=== PATIENT | female | born 1935 | race Caucasian/White ===

== ENCOUNTER → 2017-05-03 | Outpatient (CLI) | payer MEDICARE, BC ==
[~2017-05-03] MED LIST: ACID REDUCER20 MG PO; ADULT LOW DOSE81 MG PO; ALLOPURINOL 30300 M2 PO; AMARYL2 MG PO; AZITHROMYCIN 2250 MG PO; BENICAR20 MG PO; CARDIZEM CD180 MG PO; CARDIZEM CD240 MG PO; CELEBREX 200 M200 M1; CELEBREX 200 M200 M1 PO; CELEBREX 200 M200 MG PO; CELEBREX PO; COLACE100 MG PO; COLCHICINE0.6 MG PO; DIAZEPAM2 MG PO; DILTIAZEM HCL90 MG PO; DIOVAN HCT 1601 EAC1; DIOVAN HCT 3201 EACH PO; DIOVAN320 MG PO; FENTANYL PA25 MCG/HR TP; GLUCOPHAGE1000 MG PO; HUMALOG MI100 UNIT/2 SQ; HUMALOG100 UNIT/1 SUBQ; HYDROCODON-ACE1 EAC7 PO; HYDROCODONE-AP1 EAC6 PO; LANTUS SUBQ; LIDODERM TP; NEURONTIN 300M300 M2 PO; NITROFURANTOIN50 M4; NORCO 5-325 TA1 EACH PO; NORVASC5 MG PO; PANTOPRAZOLE SO40 M1 PO; PLAVIX 75 MG TA75 MG PO; PREVACID15 MG PO; PROTONIX40 M1 PO; SYNTHROID50 MCG PO; TRAMADOL 50 MG50 MG PO; VALSARTAN-HCTZ1 EAC4; VICODIN; ZOFRAN ODT4 MG PO; ZOFRAN4 MG PO
== END ==
LOC: M.RAD 10:34
DX: M47.896 Other spondylosis, lumbar region (principal); M25.562 Pain in left knee; M25.552 Pain in left hip; R10.2 Pelvic and perineal pain; Z96.652 Presence of left artificial knee joint

== ENCOUNTER → 2017-07-13 | Outpatient (CLI) | payer MEDICARE, BC | LOC: M.ULTRA 13:00 | DX: N28.1 Cyst of kidney, acquired (principal); I10 Essential (primary) hypertension; I70.1 Atherosclerosis of renal artery ==

== ENCOUNTER 2017-07-16 12:41 | Inpatient (IN) | payer MEDICARE, BC ==
[~2017-07-16] VITALS: Ht 152.4 cm; Wt 81.2 kg
[~2017-07-16 12:41] MED LIST changes: -BENICAR20 MG PO; -CARDIZEM CD240 MG PO; -COLCHICINE0.6 MG PO; -DIOVAN320 MG PO; -HYDROCODON-ACE1 EAC7 PO; -NORVASC5 MG PO; -ZOFRAN4 MG PO
[2017-07-16 12:57] VITALS: BP 219/78
[2017-07-16] MEDS ORDERED: CARDIZEM CD240 MG PO (13:04)
[2017-07-16] MEDS ORDERED: DIOVAN320 MG PO (13:05)
[2017-07-16] MEDS ORDERED: HUMALOG100 UNIT/1 SUBQ (13:06)
[2017-07-16 13:27] LABS: URINE BILIRUBIN NEGATIVE (Negative); URINE BLOOD NEGATIVE (Negative); URINE CLARITY CLEAR; URINE COLOR YELLOW; URINE GLUCOSE-RANDOM 1+ (Negative); URINE KETONES NEGATIVE (Negative); URINE LEUKOCYTES-REFLEX NEGATIVE (Negative); URINE NITRITE-REFLEX NEGATIVE (Negative); URINE PROTEIN 3+ (Negative); URINE SPECIFIC GRAVITY 1.025 (1.005-1.030)
[2017-07-16 13:35] LABS: CASTS None Seen /LPF (None Seen); SQUAMOUS >10 Many /LPF (0-3)
[2017-07-16 13:36] LABS: BACTERIA-REFLEX None Seen /HPF (None Seen); CRYSTALS None Seen /LPF (None Seen); URINE RBC 0-2 Rare /HPF (0-2); URINE WBC-REFLEX 0-5 Rare /HPF (0-5)
[2017-07-16 13:36] LABS: ABSOLUTE BASOPHILS 0.1 thou/uL (0.0-0.2); ABSOLUTE LYMPHOCYTES 2.9 thou/uL (0.8-5.3); ABSOLUTE MONOCYTES 0.9 thou/uL (0.0-1.2); ABSOLUTE NEUTROPHILS 8.1 thou/uL (1.6-8.1); BASOPHILS 1.2 %; EOSINOPHILS 0.1 %; HEMATOCRIT 40.4 % (37.0-47.0); HEMOGLOBIN 13.4 gm/dL (12.0-15.0); LYMPHOCYTES 24.2 %; MCHC 33.2 g/dL (28.0-37.0); MCV 99.1 fL (80.0-100.0); MONOCYTES 7.4 %; MPV 8.1 fl. (7.2-11.1); NUCLEATED RBCS 0 /100WBC; PLATELET COUNT* 316 thou/uL (150-400); POLYS 67.1 %; RBC 4.07 mil/uL (4.20-5.00); RDW-CV 13.7 % (10.5-14.5)
[2017-07-16 13:42] LABS: ANION GAP 10 mmol/L (7-16); BUN 41 mg/dL (7-18); CALCIUM 8.7 mg/dL (8.5-10.1); CHLORIDE 102 mmol/L (98-107); CO2 25 mmol/L (21-32); CREATININE 1.8 mg/dL (0.6-1.3); GLUCOSE 231 mg/dL (70-99); POTASSIUM 4.4 mmol/L (3.5-5.1); SODIUM 137 mmol/L (136-145)
[2017-07-16 13:53] LABS: ALBUMIN 2.9 g/dL (3.4-5.0); ALKALINE PHOSPHATASE 125 U/L (46-116); NT-PRO BRAIN NAT PEPTIDE 163 pg/mL (<300); SGOT 33 U/L (15-37); SGPT 51 U/L (30-65); TOTAL BILIRUBIN 0.3 mg/dL (<0.1-1.0); TOTAL PROTEIN 7.7 g/dL (6.4-8.2); TROPONIN-I LEVEL <0.06 ng/mL (<0.06)
[2017-07-16 17:15] VITALS: BP 150/62; BP 195/59
[2017-07-16 20:00] VITALS: BP 184/52
[2017-07-16 21:09] LABS: INFLUENZA A ANTIGEN None Detected (None Detect); INFLUENZA B ANTIGEN None Detected (None Detect)
[2017-07-17 00:07] VITALS: BP 118/43
[2017-07-17 03:52] VITALS: BP 166/57
[2017-07-17 05:13] LABS: ABSOLUTE LYMPHOCYTES 3.3 thou/uL (0.8-5.3); ABSOLUTE MONOCYTES 0.9 thou/uL (0.0-1.2); ABSOLUTE NEUTROPHILS 6.5 thou/uL (1.6-8.1); BASOPHILS 0.3 %; EOSINOPHILS 0.3 %; HEMOGLOBIN 12.2 gm/dL (12.0-15.0); LYMPHOCYTES 30.4 %; MCH 32.7 pg (26.0-34.0); MCHC 32.9 g/dL (28.0-37.0); MCV 99.6 fL (80.0-100.0); MONOCYTES 8.7 %; MPV 8.2 fl. (7.2-11.1); NUCLEATED RBCS 0 /100WBC; PLATELET COUNT* 274 thou/uL (150-400); POLYS 60.3 %; RBC 3.72 mil/uL (4.20-5.00); RDW-CV 13.8 % (10.5-14.5); WBC 10.7 thou/uL (4.0-11.0)
[2017-07-17 05:32] LABS: ALBUMIN 2.5 g/dL (3.4-5.0); CALCIUM 8.6 mg/dL (8.5-10.1); CREATININE 1.4 mg/dL (0.6-1.3); MAGNESIUM 1.8 mg/dL (1.8-2.4); POTASSIUM 4.4 mmol/L (3.5-5.1); TOTAL BILIRUBIN 0.2 mg/dL (<0.1-1.0); TOTAL PROTEIN 6.2 g/dL (6.4-8.2)
[2017-07-17 08:00] VITALS: BP 203/66
[2017-07-17 11:42] VITALS: BP 201/46
--- NOTE | 2017-07-17 15:17 | EKG ---
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
[2017-07-17 17:00] VITALS: BP 148/46
[2017-07-17 20:00] VITALS: BP 191/64
[2017-07-18] VITALS: BP 136/57
[2017-07-18 04:00] VITALS: BP 181/67
[2017-07-18 05:13] LABS: ABSOLUTE BASOPHILS 0.1 thou/uL (0.0-0.2); ABSOLUTE LYMPHOCYTES 2.9 thou/uL (0.8-5.3); ABSOLUTE MONOCYTES 0.9 thou/uL (0.0-1.2); ABSOLUTE NEUTROPHILS 6.6 thou/uL (1.6-8.1); BASOPHILS 0.5 %; EOSINOPHILS 0.3 %; HEMATOCRIT 37.7 % (37.0-47.0); HEMOGLOBIN 12.4 gm/dL (12.0-15.0); LYMPHOCYTES 27.9 %; MCH 32.6 pg (26.0-34.0); MCV 98.9 fL (80.0-100.0); MONOCYTES 8.9 %; MPV 8.4 fl. (7.2-11.1); NUCLEATED RBCS 0 /100WBC; PLATELET COUNT* 257 thou/uL (150-400); POLYS 62.4 %; RBC 3.81 mil/uL (4.20-5.00); RDW-CV 13.9 % (10.5-14.5); WBC 10.5 thou/uL (4.0-11.0)
[2017-07-18 05:36] LABS: ALBUMIN 2.5 g/dL (3.4-5.0); CREATININE 1.2 mg/dL (0.6-1.3); POTASSIUM 4.2 mmol/L (3.5-5.1); TOTAL BILIRUBIN 0.3 mg/dL (<0.1-1.0); TOTAL PROTEIN 6.9 g/dL (6.4-8.2)
[2017-07-18 07:45] VITALS: BP 152/63
[2017-07-18 11:45] VITALS: BP 172/60
[2017-07-18 15:37] VITALS: BP 130/36
[2017-07-18 20:00] VITALS: BP 160/72
[2017-07-19] VITALS: BP 138/62
[2017-07-19 04:00] VITALS: BP 170/77
[2017-07-19 04:54] LABS: HEMATOCRIT 42.2 % (37.0-47.0); HEMOGLOBIN 13.6 gm/dL (12.0-15.0); MCH 33.5 pg (26.0-34.0); MCHC 32.3 g/dL (28.0-37.0); MCV 103.8 fL (80.0-100.0); MPV 8.7 fl. (7.2-11.1); RBC 4.06 mil/uL (4.20-5.00); RDW-CV 14.7 % (10.5-14.5); WBC 8.9 thou/uL (4.0-11.0)
[2017-07-19 05:38] LABS: ALBUMIN 2.8 g/dL (3.4-5.0); CALCIUM 9.5 mg/dL (8.5-10.1); CREATININE 1.1 mg/dL (0.6-1.3); POTASSIUM 4.7 mmol/L (3.5-5.1); TOTAL BILIRUBIN 0.3 mg/dL (<0.1-1.0); TOTAL PROTEIN 6.8 g/dL (6.4-8.2)
[2017-07-19 08:00] VITALS: BP 154/69
[2017-07-19 11:04] VITALS: BP 120/46
[2017-07-19] MEDS ORDERED: NORVASC5 MG PO (13:51)
[2017-07-19 13:53] VITALS: BP 120/46
== END 2017-07-19 14:30 | disposition home or self-care (01) | DRG 682 ==
LOC: M.ERS 12:41 → M.TBA-ER 15:03 → M.2W 15:03
PROVIDERS: Emergency Medicine Emergency Medical Services; ADMIT Internal Medicine
DX: N17.0 Acute kidney failure with tubular necrosis (principal); R65.11 Systemic inflammatory response syndrome (SIRS) of non-infectious origin with acute organ dysfunction; I16.1 Hypertensive emergency; I50.32 Chronic diastolic (congestive) heart failure; E44.0 Moderate protein-calorie malnutrition; I13.0 Hypertensive heart and chronic kidney disease with heart failure and stage 1 through stage 4 chronic kidney disease, or unspecified chronic kidney disease; N18.3 Chronic kidney disease, stage 3 (moderate); E11.51 Type 2 diabetes mellitus with diabetic peripheral angiopathy without gangrene; E66.9 Obesity, unspecified; Z96.651 Presence of right artificial knee joint; K21.9 Gastro-esophageal reflux disease without esophagitis; E03.9 Hypothyroidism, unspecified; M19.90 Unspecified osteoarthritis, unspecified site; E78.5 Hyperlipidemia, unspecified; D72.829 Elevated white blood cell count, unspecified; Z68.35 Body mass index [BMI] 35.0-35.9, adult; Z88.1 Allergy status to other antibiotic agents; Z88.8 Allergy status to other drugs, medicaments and biological substances; Z86.711 Personal history of pulmonary embolism; Z79.4 Long term (current) use of insulin; Z79.899 Other long term (current) drug therapy; Z90.710 Acquired absence of both cervix and uterus; Z90.89 Acquired absence of other organs; Z90.49 Acquired absence of other specified parts of digestive tract; Z86.718 Personal history of other venous thrombosis and embolism; E11.22 Type 2 diabetes mellitus with diabetic chronic kidney disease; Z82.49 Family history of ischemic heart disease and other diseases of the circulatory system; Z83.3 Family history of diabetes mellitus; Z84.1 Family history of disorders of kidney and ureter

== ENCOUNTER → 2017-11-01 | Outpatient (CLI) | payer MEDICARE, BC ==
[~2017-11-01] MED LIST changes: +BENICAR20 MG PO; +CARDIZEM CD240 MG PO; +COLCHICINE0.6 MG PO; +DIOVAN320 MG PO; +HYDROCODON-ACE1 EAC7 PO; +NORVASC5 MG PO; +ZOFRAN4 MG PO
[2017-11-01 10:46] LABS: CREATININE 1.5 mg/dL (0.6-1.3)
== END ==
LOC: M.LAB 10:19 → M.CT 11:30
PROVIDERS: Nurse Practitioner
DX: R91.8 Other nonspecific abnormal finding of lung field (principal); I10 Essential (primary) hypertension; Z95.820 Peripheral vascular angioplasty status with implants and grafts

== ENCOUNTER 2018-02-10 09:27 | Emergency (ER) | payer MEDICARE, BC ==
[~2018-02-10] VITALS: Ht 152.4 cm; Wt 79.4 kg
[~2018-02-10 09:27] MED LIST changes: -BENICAR20 MG PO; -COLCHICINE0.6 MG PO; -HYDROCODON-ACE1 EAC7 PO; -ZOFRAN4 MG PO
[2018-02-10] MEDS ORDERED: BENICAR20 MG PO (09:43)
[2018-02-10] MEDS ORDERED: HYDROCODON-ACE1 EAC7 PO (15:15)
[2018-02-10] MEDS ORDERED: ZOFRAN4 MG PO (15:15)
[2018-02-10 15:21] VITALS: BP 200/100
== END 2018-02-10 15:34 | disposition home or self-care (01) ==
LOC: M.ERS 09:27
DX: S86.911A Strain of unspecified muscle(s) and tendon(s) at lower leg level, right leg, initial encounter (principal); X58.XXXA Exposure to other specified factors, initial encounter; Y93.89 Activity, other specified; Y92.89 Other specified places as the place of occurrence of the external cause; Y99.8 Other external cause status; I12.9 Hypertensive chronic kidney disease with stage 1 through stage 4 chronic kidney disease, or unspecified chronic kidney disease; E11.22 Type 2 diabetes mellitus with diabetic chronic kidney disease; N18.3 Chronic kidney disease, stage 3 (moderate); K21.9 Gastro-esophageal reflux disease without esophagitis; E03.9 Hypothyroidism, unspecified; E78.5 Hyperlipidemia, unspecified; Z90.49 Acquired absence of other specified parts of digestive tract; Z90.710 Acquired absence of both cervix and uterus; Z86.718 Personal history of other venous thrombosis and embolism; Z88.1 Allergy status to other antibiotic agents; Z88.5 Allergy status to narcotic agent; Z88.6 Allergy status to analgesic agent; Z88.8 Allergy status to other drugs, medicaments and biological substances

== ENCOUNTER 2018-02-11 10:59 | Inpatient (IN) | payer MEDICARE, BC ==
[~2018-02-11] VITALS: Ht 152.4 cm; Wt 81.6 kg
[~2018-02-11 10:59] MED LIST changes: +BENICAR20 MG PO; +HYDROCODON-ACE1 EAC7 PO; +ZOFRAN4 MG PO
[2018-02-11 11:06] VITALS: BP 119/68
[2018-02-11 11:42] LABS: ABSOLUTE BASOPHILS 0.1 thou/uL (0.0-0.2); ABSOLUTE LYMPHOCYTES 2.3 thou/uL (0.8-5.3); ABSOLUTE MONOCYTES 0.9 thou/uL (0.0-1.2); ABSOLUTE NEUTROPHILS 7.2 thou/uL (1.6-8.1); BASOPHILS 0.7 %; EOSINOPHILS 0.3 %; HEMATOCRIT 35.2 % (37.0-47.0); HEMOGLOBIN 11.6 gm/dL (12.0-15.0); LYMPHOCYTES 21.9 %; MCH 31.8 pg (26.0-34.0); MCV 96.5 fL (80.0-100.0); MONOCYTES 8.5 %; MPV 8.3 fl. (7.2-11.1); NUCLEATED RBCS 0 /100WBC; PLATELET COUNT* 322 thou/uL (150-400); POLYS 68.6 %; RBC 3.65 mil/uL (4.20-5.00); RDW-CV 13.9 % (10.5-14.5); WBC 10.5 thou/uL (4.0-11.0)
[2018-02-11 11:50] LABS: CALCIUM 8.9 mg/dL (8.5-10.1); CREATININE 1.5 mg/dL (0.6-1.3); POTASSIUM 3.9 mmol/L (3.5-5.1)
[2018-02-11 11:55] LABS: ALBUMIN 2.7 g/dL (3.4-5.0); TOTAL BILIRUBIN 0.4 mg/dL (<0.1-1.0); TOTAL PROTEIN 8.1 g/dL (6.4-8.2); URIC ACID* 8.9 mg/dL (2.6-7.2)
[2018-02-11 13:20] VITALS: BP 119/68
[2018-02-11 17:02] VITALS: BP 152/86
[2018-02-11 21:00] VITALS: BP 177/62
[2018-02-12] VITALS: BP 187/64
[2018-02-12 04:19] LABS: HEMATOCRIT 32.9 % (37.0-47.0); MCH 32.1 pg (26.0-34.0); MCHC 33.4 g/dL (28.0-37.0); MPV 8.6 fl. (7.2-11.1); RBC 3.43 mil/uL (4.20-5.00); WBC 9.7 thou/uL (4.0-11.0)
[2018-02-12 04:39] LABS: CREATININE 1.4 mg/dL (0.6-1.3); MAGNESIUM 1.6 mg/dL (1.8-2.4); PHOSPHORUS* 3.2 mg/dL (2.5-4.9); POTASSIUM 4.2 mmol/L (3.5-5.1)
[2018-02-12 08:49] VITALS: BP 187/70
[2018-02-12 15:42] VITALS: BP 181/67
[2018-02-12 20:30] VITALS: BP 178/61
[2018-02-13 08:15] VITALS: BP 176/58
[2018-02-13 16:00] VITALS: BP 152/55
[2018-02-13 19:30] VITALS: BP 139/59
[2018-02-14 03:05] VITALS: BP 203/71
[2018-02-14 03:06] VITALS: BP 194/74
[2018-02-14 03:48] VITALS: BP 171/62
[2018-02-14 08:00] VITALS: BP 155/68
[2018-02-14 14:05] VITALS: BP 155/68
[2018-02-14 14:19] VITALS: BP 155/68
[2018-02-14] MEDS ORDERED: COLCHICINE0.6 MG PO (14:25)
== END 2018-02-14 15:33 | disposition home health service (06) | DRG 553 ==
LOC: M.ERS 10:59 → M.TBA-ER 12:15 → M.3W 12:15
PROVIDERS: Emergency Medicine; ADMIT Internal Medicine
DX: M10.061 Idiopathic gout, right knee (principal); E43 Unspecified severe protein-calorie malnutrition; E87.1 Hypo-osmolality and hyponatremia; I12.9 Hypertensive chronic kidney disease with stage 1 through stage 4 chronic kidney disease, or unspecified chronic kidney disease; Z96.651 Presence of right artificial knee joint; K21.9 Gastro-esophageal reflux disease without esophagitis; E03.9 Hypothyroidism, unspecified; M19.90 Unspecified osteoarthritis, unspecified site; E78.5 Hyperlipidemia, unspecified; N18.3 Chronic kidney disease, stage 3 (moderate); E11.51 Type 2 diabetes mellitus with diabetic peripheral angiopathy without gangrene; E11.22 Type 2 diabetes mellitus with diabetic chronic kidney disease; M47.896 Other spondylosis, lumbar region; M51.36 Other intervertebral disc degeneration, lumbar region; M10.071 Idiopathic gout, right ankle and foot; I70.1 Atherosclerosis of renal artery; Z68.35 Body mass index [BMI] 35.0-35.9, adult; Z86.718 Personal history of other venous thrombosis and embolism; Z90.49 Acquired absence of other specified parts of digestive tract; Z90.710 Acquired absence of both cervix and uterus; Z86.711 Personal history of pulmonary embolism; Z95.820 Peripheral vascular angioplasty status with implants and grafts; Z79.4 Long term (current) use of insulin; Z79.899 Other long term (current) drug therapy; Z88.1 Allergy status to other antibiotic agents; Z88.8 Allergy status to other drugs, medicaments and biological substances; Z82.49 Family history of ischemic heart disease and other diseases of the circulatory system; Z83.3 Family history of diabetes mellitus; Z84.1 Family history of disorders of kidney and ureter

== ENCOUNTER 2018-05-16 13:18 | Emergency (ER) | payer MEDICARE, BC ==
[~2018-05-16] VITALS: Ht 152.4 cm; Wt 77.1 kg
[~2018-05-16 13:18] MED LIST changes: +COLCHICINE0.6 MG PO
[2018-05-16] MEDS ORDERED: BENICAR20 MG PO (13:56)
[2018-05-16 16:02] VITALS: BP 170/72
== END 2018-05-16 16:06 | disposition home or self-care (01) ==
LOC: M.ERS 13:18
DX: S93.491A Sprain of other ligament of right ankle, initial encounter (principal); S76.812A Strain of other specified muscles, fascia and tendons at thigh level, left thigh, initial encounter; E03.9 Hypothyroidism, unspecified; E78.5 Hyperlipidemia, unspecified; I12.9 Hypertensive chronic kidney disease with stage 1 through stage 4 chronic kidney disease, or unspecified chronic kidney disease; E11.22 Type 2 diabetes mellitus with diabetic chronic kidney disease; N18.3 Chronic kidney disease, stage 3 (moderate); I73.9 Peripheral vascular disease, unspecified; Z90.710 Acquired absence of both cervix and uterus; Z90.49 Acquired absence of other specified parts of digestive tract; Z96.652 Presence of left artificial knee joint; Z86.711 Personal history of pulmonary embolism; Z76.4 Other boarder to healthcare facility; Z88.1 Allergy status to other antibiotic agents; Z88.6 Allergy status to analgesic agent; Z88.8 Allergy status to other drugs, medicaments and biological substances; W00.0XXA Fall on same level due to ice and snow, initial encounter; Y93.89 Activity, other specified; Y92.89 Other specified places as the place of occurrence of the external cause; Y99.8 Other external cause status

== ENCOUNTER 2018-09-13 02:36 | Inpatient (IN) | payer MEDICARE, BC ==
[2018-09-13] VITALS (7 sets, daily range): BP systolic 132–227; BP diastolic 46–85
[~2018-09-13] VITALS: Ht 152.4 cm; Wt 78.0 kg
[2018-09-13 02:54] LABS: ABSOLUTE BASOPHILS 0.1 thou/uL (0.0-0.2); ABSOLUTE EOSINOPHILS 0.1 thou/uL (0.0-0.7); ABSOLUTE LYMPHOCYTES 2.7 thou/uL (0.8-5.3); ABSOLUTE MONOCYTES 0.7 thou/uL (0.0-1.2); ABSOLUTE NEUTROPHILS 3.8 thou/uL (1.6-8.1); BASOPHILS 0.9 %; EOSINOPHILS 1.6 %; HEMATOCRIT 37.9 % (37.0-47.0); HEMOGLOBIN 12.7 gm/dL (12.0-15.0); LYMPHOCYTES 35.8 %; MCH 31.7 pg (26.0-34.0); MCHC 33.4 g/dL (28.0-37.0); MCV 94.7 fL (80.0-100.0); MONOCYTES 9.9 %; MPV 8.6 fl. (7.2-11.1); NUCLEATED RBCS 0 /100WBC; PLATELET COUNT* 239 thou/uL (150-400); POLYS 51.8 %; WBC 7.4 thou/uL (4.0-11.0)
[2018-09-13 03:09] LABS: ANION GAP 10 mmol/L (7-16); BUN 32 mg/dL (7-18); CALCIUM 9.5 mg/dL (8.5-10.1); CHLORIDE 103 mmol/L (98-107); CO2 25 mmol/L (21-32); CREATININE 1.5 mg/dL (0.6-1.3); GLUCOSE 217 mg/dL (70-99); POTASSIUM 4.5 mmol/L (3.5-5.1); SODIUM 138 mmol/L (136-145)
[2018-09-13 03:14] LABS: ALBUMIN 2.8 g/dL (3.4-5.0); ALKALINE PHOSPHATASE 156 U/L (46-116); SGOT 36 U/L (15-37); SGPT 34 U/L (30-65); TOTAL BILIRUBIN 0.3 mg/dL (<0.1-1.0); TOTAL PROTEIN 7.9 g/dL (6.4-8.2); TROPONIN-I LEVEL <0.06 ng/mL (<0.06)
[2018-09-13 03:28] LABS: URINE BILIRUBIN NEGATIVE (Negative); URINE BLOOD TRACE (Negative); URINE CLARITY CLEAR; URINE COLOR YELLOW; URINE GLUCOSE-RANDOM TRACE (Negative); URINE KETONES NEGATIVE (Negative); URINE LEUKOCYTES-REFLEX NEGATIVE (Negative); URINE NITRITE-REFLEX NEGATIVE (Negative); URINE PROTEIN 3+ (Negative); URINE UROBILINOGEN 0.2 E.U./dl (0.2-1.0)
[2018-09-13 04:20] LABS: BACTERIA-REFLEX 1-9 Few /HPF (None Seen); CASTS None Seen /LPF (None Seen); CRYSTALS None Seen /LPF (None Seen); SQUAMOUS 0-3 Few /LPF (0-3); URINE RBC 0-2 Rare /HPF (0-2); URINE WBC-REFLEX 0-5 Rare /HPF (0-5)
[2018-09-13 04:54] LABS: APTT 28.8 Seconds (25.0-31.3); PROTIME 10.2 Seconds (9.20-11.50)
[2018-09-13 05:27] LABS: TROPONIN-I LEVEL <0.06 ng/mL (<0.06)
[2018-09-13 06:07] LABS: NT-PRO BRAIN NAT PEPTIDE 170 pg/mL (<300)
--- NOTE | 2018-09-13 11:36 | EKG ---
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
--- NOTE | 2018-09-13 12:07 | 2DMMODE ---
[place] [address] 2 D/M-MODE ECHOCARDIOGRAM Name: ROBIN ASH Room: [address] IN [facility]#: [id number] Admission: 09/13/18 Attend Phys: Anjali Beard Discharge: Date of : 39 Date of Service: 09/13/18 1206 Report #: [id number] THIS REPORT FOR: //name// APPROVED REPORT Study performed: 09/13/2018 10:29:55 EXAM: Comprehensive 2D, Doppler, and color-flow Echocardiogram Patient Location: In-Patient Room #: [facility] Status: routine BSA: 1.75 HR: 66 bpm BP: 209/77 mmHg Rhythm: NSR Other Information Study Quality: Good Indications Dyspnea 2D Dimensions IVSd: 8.28 (7-11mm) LVOT Diam: 17.61 (18-24mm) LVDd: 41.35 mm PWd: 8.74 (7-11mm) Ascending Ao: 31.55 (22-36mm) LVDs: 22.96 (25-40mm) Aortic Root: 30.77 mm Volumes Left Atrial Volume (Systole) LA ESV Index: 20.50 mL/m2 Aortic Valve AoV Peak Michael.: 1.69 m/s AO Peak Gr.: 11.46 mmHg LVOT Max P.12 mmHg AO Mean Gr.: 5.91 mmHg LVOT Mean P.96 mmHg LVOT Max V: 1.24 m/s AO V2 VTI: 38.12 cm LVOT Mean V: 0.79 m/s NETTA (VTI): 1.94 cm2 LVOT V1 VTI: 30.42 cm Mitral Valve MV Mean Gr.: 2.65 mmHg E/A Ratio: 0.68 MV Decel. Time: 403.94 ms MV E Max Michael.: 0.80 m/[place] [address] 2 D/M-MODE ECHOCARDIOGRAM Name: ROBIN ASH Room: [address] IN [facility].#: [id number] Admission: 09/13/18 Attend Phys: Anjali Beard Discharge: Date of : 39 Date of Service: 09/13/18 1206 Report #: [id number] PHT: 117.14 ms MVA (PHT): 1.88 cm2 TDI E/Lateral E': 10.00 E/Medial E': 10.00 Medial E' Michael.: 0.08 m/s Lateral E' Michael.: 0.08 m/s Pulmonary Valve PV Peak Michael.: 1.23 m/s PV Peak Gr.: 6.10 mmHg Left Ventricle The left ventricle is normal size. There is normal LV segmental wall motion. There is normal left ventricular wall thickness. Left ventricular systolic function is normal. The left ventricular ejection fraction is within the normal range. LVEF is 65-70%. Grade I - abnormal relaxation pattern. Right Ventricle The right ventricle is normal size. The right ventricular systolic function is normal. Atria The left atrium size is normal. The right atrium size is normal. Aortic Valve Mild aortic valve sclerosis. No aortic regurgitation is present. There is no aortic valvular stenosis. Mitral Valve Moderate mitral annular calcification. Trace mitral regurgitation. No evidence of mitral valve stenosis. Tricuspid Valve The tricuspid valve is normal in structure. Unable to assess PA pressure. Trace tricuspid regurgitation. Pulmonic Valve The pulmonary valve is normal in structure. There is no pulmonic valvular regurgitation. Great Vessels The aortic root is normal in size. IVC is normal in size and collapses >50% [place] [address] 2 D/M-MODE ECHOCARDIOGRAM Name: ROBIN ASH Room: [address] IN [facility]#: [id number] Admission: 09/13/18 Attend Phys: Anjali Beard Discharge: Date of : 39 Date of Service: 09/13/18 1206 Report #: [id number] Pericardium There is no pericardial effusion. <Conclusion> LVEF is 65-70%. There is normal LV segmental wall motion. Grade I - abnormal relaxation pattern. Mild aortic valve sclerosis. There is no aortic valvular stenosis. No aortic regurgitation is present. No evidence of mitral valve stenosis. Trace mitral regurgitation. <ELECTRONICALLY SIGNED> By: Christopher Arce MD, [facility]ACC 09/13/18 1206 1206 120 Christopher Arce MD, [facility]ACC /INF
--- NOTE | 2018-09-13 15:57 | NUR ---
PT SOMEWHAT PROGRESSING TOWARDS GOALS THIS SHIFT. NEW ADMIT TODAY. PT/OT CONSULTED. BLOOD PRESSURE IMPROVED WITH ADDITIONAL MEDS ORDERED BY HIM PHYSICIAN. PT HAD CT CHEST TODAY. REFER TO RESULTS .ANTICIPATE RENAL US TOMORROW. NPO AFTER MIDNIGHT. NO OTHER CONCERNS AT THIS TIME. CLWR. WCTM.
[2018-09-14 01:03] VITALS: BP 116/44
[2018-09-14 04:16] VITALS: BP 122/50
--- NOTE | 2018-09-14 05:19 | NUR ---
ASSUMED PATIENT CARE AT 1900. PATIENT ALERT AND ORIENTED TIMES FOUR. VERY SLEEPY AT TIME OF ASSESSMENT. ABLE TO AMBULATE WITH STB TO THE RESTROOM. NO COMPLAINTS OF PAIN OR DISCOMFORT NOTED. 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
[2018-09-14 08:02] VITALS: BP 140/45
--- NOTE | 2018-09-14 10:40 | NUR ---
CM completed initial assessment to discuss d/c plan and educate on the role of CM. pt standing in mirror fixing hair upon arrival, also pt's was present at time of assessment. pt a&Ox4. pt has hx w/HH and SNF, doesnt recall which companies used. pt lives at home w/spouse & has adequate support. pt has a walker she uses prn. no needs identified at this time. CM will remain available to assist as needed.
[2018-09-14 11:56] VITALS: BP 139/55
[2018-09-14 15:50] VITALS: BP 115/50
--- NOTE | 2018-09-14 15:56 | NUR ---
Dr. Dobbs informed this CM the pt had question about dpoa. cm took dpoa paperwork and informed pt and spouse CM dept had available notary. pt declined to sign paperwork at this time. she asked CM to leave paperwork for her to review.
--- NOTE | 2018-09-14 17:29 | NUR ---
PT CARE ASSUMED AFTER REPORT. ASSESSMENT COMPLETE. SR ON MONITOR. PT CHOOSES WHAT MEDICATION SHE WILL TAKE. PT EDUCATION R/T NEED FOR MEDICATION AND THAT THIS IS WHAT THE DR HAS ORDERED. REFUSED LOSARTAN AND SENNA. ALSO REFUSED AM INSULIN R/T TIME IT WAS OFFERED. DENIES PAIN. PROGRESSING TOWARDS GOALS.
[2018-09-14 20:00] VITALS: BP 118/47
[2018-09-14 23:06] LABS: IgA 653 mg/dL (64-422); IgG 1286 mg/dL (700-1600); IgM 178 mg/dL (26-217)
[2018-09-15] VITALS: BP 167/61
[2018-09-15 04:00] VITALS: BP 150/54
--- NOTE | 2018-09-15 05:38 | NUR ---
ASSUMED PATIENT CARE AT 1900. PATIENT RESTING IN BED AT THIS TIME. REMAINS LETHARGIC AND FLAT. ABLE TO AMBULATE WITH STB TO THE RESTROOM. 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
[2018-09-15 08:15] VITALS: BP 147/50
[2018-09-15 12:42] VITALS: BP 123/61
--- NOTE | 2018-09-15 13:18 | NUR ---
NEW ORDERS RECEIVED FOR P.T. EVAL AND TREAT. PLEASE SEE P.T. EVAL WHICH WAS COMPLETED ON 09/14/18 P.M.
[2018-09-15 17:44] VITALS: BP 164/55
--- NOTE | 2018-09-15 18:10 | NUR ---
PT VSS THIS SHIFT. PT TO HAVE LUNG BX OUTPATIENT. PT TOLERATING BEING UP AD SARA/SBA AT THIS TIME. PT PROVIDED INSULIN WHEN NEEDED. PT PAIN WELL MANAGED AT THIS TIME. HOURLY ROUNDING MAINTAINED THIS SHIFT. WILL CONTINUE TO MONITOR AND ASSESS.
[2018-09-15 20:00] VITALS: BP 119/51
[2018-09-16] VITALS: BP 114/61
[2018-09-16 04:00] VITALS: BP 160/54
[2018-09-16 04:41] LABS: HEMATOCRIT 33.7 % (37.0-47.0); HEMOGLOBIN 11.2 gm/dL (12.0-15.0); MCH 31.7 pg (26.0-34.0); MCHC 33.1 g/dL (28.0-37.0); MCV 95.6 fL (80.0-100.0); RBC 3.52 mil/uL (4.20-5.00); WBC 5.9 thou/uL (4.0-11.0)
[2018-09-16 04:51] LABS: CALCIUM 8.8 mg/dL (8.5-10.1); CREATININE 2.1 mg/dL (0.6-1.3); MAGNESIUM 2.2 mg/dL (1.8-2.4); POTASSIUM 4.9 mmol/L (3.5-5.1)
--- NOTE | 2018-09-16 05:36 | NUR ---
ASSUMED PT CARE AT APPROX 1930. PT IS AWAKE AND ORIENTED X4. VSS ON 2L/NC. TERMITE CONTROL TECHNICIAN IN PLACE TRACING SR WITH 1D AVB. PT REFUSED TO GET SLIDING SCALE DOSE LAST NIGHT. EDUCATION GIVEN. PT WAS ABLE TO SLEEP MOST OF THE NIGHT. CALLL LIGHT WITHIN REACH. HOURLY ROUNDING DONE FOR PT SAFETY. FALL PRECAUTIONS IN PLACE.
[2018-09-16 07:30] VITALS: BP 140/54
--- NOTE | 2018-09-16 18:58 | NUR ---
PT CHANGED TO MED/SURG STATUS THIS SHIFT. PT PLACED ON IV FLUIDS FOR LOW SODIUM LABS. PT TO STAY FOR LUNG BX TOMORROW AND WILL BE NPO AT MIDNIGHT. PT HAS NO C/O PAIN THIS SHIFT AND IS TOLERATING BEING UP AD SARA AND IS HAVING NO GI/, N/V ISSUES THIS SHIFT. WILL CONTINUE TO MONITOR AND ASSESS.
[2018-09-16 20:15] VITALS: BP 147/61
[2018-09-17 04:34] LABS: HEMATOCRIT 30.5 % (37.0-47.0); HEMOGLOBIN 10.2 gm/dL (12.0-15.0); MCH 31.7 pg (26.0-34.0); MCHC 33.3 g/dL (28.0-37.0); MCV 95.3 fL (80.0-100.0); MPV 9.3 fl. (7.2-11.1); RBC 3.2 mil/uL (4.20-5.00); RDW-CV 14.2 % (10.5-14.5); WBC 8.7 thou/uL (4.0-11.0)
[2018-09-17 04:43] LABS: CALCIUM 8.4 mg/dL (8.5-10.1); CREATININE 2.2 mg/dL (0.6-1.3); MAGNESIUM 2.2 mg/dL (1.8-2.4); POTASSIUM 5.1 mmol/L (3.5-5.1)
--- NOTE | 2018-09-17 06:33 | NUR ---
Transferred to floor at 2008. She is alert and oriented x 4. She had a new IV 22 gauge in her L forearm before she arrived to the floor. She is up independently to the bathroom. Her blood sugar was 270 at bedtime she did take the lantus but refused the sliding scale humalog. She has been awake all night but refused any intervention. She had nothing by mouth since midnight.
[2018-09-17 06:52] VITALS: BP 147/61
[2018-09-17 07:30] VITALS: BP 157/68
--- NOTE | 2018-09-17 13:05 | CON ---
[address] [address] CONSULTATION Name: ROBIN ASH Room: [address] IN M.R.#: [id number] Admission: 09/13/18 Attend Phys: Maisha Wen Discharge: Date of : 39 Report #: [id number] THIS REPORT FOR: //name// CC: Angela Beard REASON FOR CONSULTATION: Pulmonary nodules. HISTORY OF PRESENT ILLNESS: This is an 82-year-old female patient who was admitted to the hospital on the above-mentioned date with a chief complaint of shortness of breath that started the night of the hospitalization. Apparently, she was asleep when she developed shortness of breath. She was found to have high blood pressure. She had no chest pain or headache. She reported she had some wheezes, although she had no cough. She has no sick contacts, no fever, no chills and no sputum production. She denied any lower extremity edema. Also, she reported some belching and some feeling that she is distended. She has positive PNDs per her description and unable to lay flat. Her workup included BNP, which actually noted to be not elevated. However, her echocardiogram demonstrated preserved EF with grade 1 diastolic dysfunction. She was admitted and treated for her hypertension with gentle diuresis and she reports some improvement today. She never had asthma before. She has never been on inhaler or oxygen. She reports that she is feeling better today. Her workup includes CT scan that will be discussed below, that demonstrated bilateral upper lobe nodules. REVIEW OF SYSTEMS: All systems reviewed with the patient negative other than as mentioned above. PAST MEDICAL HISTORY: History of hypertension, diabetes mellitus, hypothyroidism, bilateral renal artery stents, history of peripheral vascular disease, chronic kidney disease, history of DVT, history of rotator cuff repair, history of hysterectomy, cholecystectomy, appendectomy, uterine and bladder suspension and right total knee replacement. She has IVC filter placed. She has history of head and left knee surgery. PAST SURGICAL HISTORY: As above. SOCIAL HISTORY: Does not smoke, does not drink alcohol and does not abuse drugs. FAMILY HISTORY: Reviewed with the patient, noncontributory. HOME MEDICATIONS: Reviewed per the documentation within the [facility]. ALLERGIES: MULTIPLE INCLUDING LYRICA, CHICO INHIBITOR, COREG, TOPROL, DILAUDID, CIPRO, LIPITOR, AUGMENTIN, SIMVASTATIN, [place]IN[place] [address] CONSULTATION Name: ASHROBIN Abbey Room: [address]#: [id number] Admission: 09/13/18 Attend Phys: Maisha Wen Discharge: Date of : 39 Report #: [id number] PHYSICAL EXAMINATION: VITAL SIGNS: She was on room air during my visit with a blood pressure 150/54, pulse rate of 68 and temperature 36.6. She is on room air. It was noted that her blood pressure upon presentation was 223/85. GENERAL: Lying in bed, overall comfortable. HEENT: Head normocephalic, atraumatic. Pupils are reactive to light. Oral cavity, moist mucous membrane. External ear looks normal and healthy. Nasal cavity patent passages. NECK: Full range of movement. Nontender. No masses felt. CHEST: Diminished air movement bilaterally. No crackles, no wheezes. No tenderness on chest palpation. HEART: S1, S2. ABDOMEN: Benign, soft, lax and nontender. EXTREMITIES: Lower extremities: No edema, no calf tenderness. SKIN: Normal for age and race, no rash. LYMPHATICS: No palpable lymph node. LABORATORY DATA: Her V/Q scan did not indicate thromboembolic disease. Her chest x-ray, no acute pathology. However, the CT scan demonstrated bilateral upper lobe nodules, the one on the right side is 2.5 x 1.8 x 2.4 and the left upper lobe 1.7 x 1.37 and some ground-glass infiltrates. Her white blood count is 7.4, hemoglobin 12.7 and platelets 239. INR of 1. Creatinine of 1.5 with sodium 138, potassium 4.8 with a BUN of 32. IMPRESSION: 1. Dyspnea. 2. Diastolic cardiac dysfunction. 3. Hypertensive urgency. 4. Chronic kidney disease. 5. Diabetes mellitus. 6. Bronchospasm. 7. Pulmonary nodules as mentioned above. PLAN: The patient's respiratory failure, multifactorial. She has some wheezes, which could be due to bronchospasm, although she did not relate a history to suggest respiratory virus illness. I agree with the nebulization treatment. We will give her 2 doses of steroids. Continue gentle diuresis, monitor her kidney function. I did review the CT scan, these nodules are very high up in the bilateral upper lobes. It will be difficult to approach with a bronchoscopy. I agree with the plan for CT-guided biopsy. She is currently off her Plavix. Discussed with the patient. [address] [place] [address] CONSULTATION Name: ROBIN ASH Room: [facility] IN .R.#: [id number] Admission: 09/13/18 Attend Phys: Maisha Wen Discharge: Date of : 39 Report #: [id number] Thank you for the consult. The patient is aware these nodules may indicate malignancy. <ELECTRONICALLY SIGNED> By: Curtis Claros MD 09/17/18 1305 0811 [id number] Claros MD /nt
[2018-09-17 14:08] LABS: LAMBDA FREE LIGHT CHAINS 41.8 mg/L (5.7-26.3)
--- NOTE | 2018-09-17 16:54 | NUR ---
PT REMAINED ALERT AND ORIENTED. PT RESTING IN ROOM. PT ADVANCED TO CARB CONTROL DIET. NO LUNG BIOPSY COMPLETED TODAY, WILL FOLLOW UP OUTPATIENT. FALL RISK PRECAUTIONS IN PLACE. HOURLY ROUNDING COMPLETED. WILL CONTINUE TO MONITOR.
[2018-09-17 19:35] VITALS: BP 159/59
[2018-09-18 04:18] LABS: HEMATOCRIT 31.1 % (37.0-47.0); HEMOGLOBIN 10.4 gm/dL (12.0-15.0); MCH 31.9 pg (26.0-34.0); MCHC 33.4 g/dL (28.0-37.0); MCV 95.4 fL (80.0-100.0); MPV 8.9 fl. (7.2-11.1); RBC 3.26 mil/uL (4.20-5.00); RDW-CV 14.1 % (10.5-14.5); WBC 6.7 thou/uL (4.0-11.0)
[2018-09-18 05:07] LABS: CALCIUM 8.3 mg/dL (8.5-10.1); CREATININE 1.9 mg/dL (0.6-1.3); MAGNESIUM 2.1 mg/dL (1.8-2.4); POTASSIUM 4.7 mmol/L (3.5-5.1)
--- NOTE | 2018-09-18 05:12 | NUR ---
PT SLEPT MOST OF SHIFT. ASSESSMENT DOCUMENTED. MEDS GIVEN PER E-MAR. IV PATENT, FLUIDS INFUSING. NO REPORTS OF PAIN OR NAUSEA. PT UP AD SARA IN ROOM. WILL CONTINUE WITH PLAN OF CARE.
[2018-09-18 07:20] VITALS: BP 160/60
[2018-09-18] MEDS ORDERED: IMDUR 30 MG TAB30 M1 PO (11:01)
[2018-09-18] MEDS ORDERED: CARDURA4 MG PO (11:01)
[2018-09-18 11:25] VITALS: BP 160/60
[2018-09-18 11:28] VITALS: BP 160/60
[2018-09-18 11:29] VITALS: BP 160/60
[2018-09-18 11:30] VITALS: BP 160/60
--- NOTE | 2018-09-18 12:36 | NUR ---
PT GIVEN DISCHARFE INFORMATION, CARE NOTES, AND PRESCRIPTIONS. APPOINTMENT MADE WITH PULMONOLOGY AND PRIMARY CARE PROVIDER. IV REMOVED. FALL RISK PRECAUTIONS IN PLACE. HOURLY ROUNDING COMPLETED. PT LEFT VIA WHEELCHAIR WITH NURSING STAFF TO HOME.
[2018-09-18 18:10] LABS: GLOBULIN TOTAL 4.2 g/dL (2.2-3.9); M-SPIKE Not Observed g/dL (Not Observed)
[2018-09-18 18:10] LABS: URINE PROTEIN (MG/DL) 495.5 mg/dL (Not Estab.)
== END 2018-09-18 12:37 | disposition home or self-care (01) | DRG 682 ==
LOC: M.ERS 02:36 → M.2W 05:11 → M.TBA-ER 05:11 → M.2W 06:54 → M.ORTHSURG 09-16 20:09
PROVIDERS: Internal Medicine; Personal Emergency Response Attendant; ADMIT Internal Medicine
DX: N17.9 Acute kidney failure, unspecified (principal); I50.31 Acute diastolic (congestive) heart failure; I13.0 Hypertensive heart and chronic kidney disease with heart failure and stage 1 through stage 4 chronic kidney disease, or unspecified chronic kidney disease; E03.9 Hypothyroidism, unspecified; I16.0 Hypertensive urgency; E11.22 Type 2 diabetes mellitus with diabetic chronic kidney disease; E11.51 Type 2 diabetes mellitus with diabetic peripheral angiopathy without gangrene; Z96.652 Presence of left artificial knee joint; R91.8 Other nonspecific abnormal finding of lung field; M19.90 Unspecified osteoarthritis, unspecified site; E78.5 Hyperlipidemia, unspecified; N18.3 Chronic kidney disease, stage 3 (moderate); K21.9 Gastro-esophageal reflux disease without esophagitis; Z90.710 Acquired absence of both cervix and uterus; Z90.49 Acquired absence of other specified parts of digestive tract; Z86.711 Personal history of pulmonary embolism; Z86.718 Personal history of other venous thrombosis and embolism; Z88.1 Allergy status to other antibiotic agents; Z88.8 Allergy status to other drugs, medicaments and biological substances

== ENCOUNTER 2018-10-05 14:27 | Emergency (ER) | payer MEDICARE, BC ==
[~2018-10-05] VITALS: Ht 152.4 cm; Wt 77.1 kg
[~2018-10-05 14:27] MED LIST changes: +CARDURA4 MG PO; +IMDUR 30 MG TAB30 M1 PO
[2018-10-05 15:24] LABS: ABSOLUTE EOSINOPHILS 0.1 thou/uL (0.0-0.7); ABSOLUTE LYMPHOCYTES 1.8 thou/uL (0.8-5.3); ABSOLUTE MONOCYTES 0.5 thou/uL (0.0-1.2); ABSOLUTE NEUTROPHILS 3.9 thou/uL (1.6-8.1); BASOPHILS 0.4 %; EOSINOPHILS 1.2 %; HEMATOCRIT 31.4 % (37.0-47.0); HEMOGLOBIN 10.6 gm/dL (12.0-15.0); LYMPHOCYTES 29.3 %; MCH 31.7 pg (26.0-34.0); MCHC 33.8 g/dL (28.0-37.0); MCV 93.7 fL (80.0-100.0); MONOCYTES 7.8 %; MPV 7.7 fl. (7.2-11.1); NUCLEATED RBCS 0 /100WBC; PLATELET COUNT* 315 thou/uL (150-400); POLYS 61.3 %; RBC 3.35 mil/uL (4.20-5.00); RDW-CV 13.8 % (10.5-14.5); WBC 6.3 thou/uL (4.0-11.0)
[2018-10-05 15:46] LABS: ANION GAP 12 mmol/L (7-16); BUN 32 mg/dL (7-18); CALCIUM 8.8 mg/dL (8.5-10.1); CHLORIDE 104 mmol/L (98-107); CO2 23 mmol/L (21-32); CREATININE 1.8 mg/dL (0.6-1.3); GLUCOSE 187 mg/dL (70-99); POTASSIUM 4.3 mmol/L (3.5-5.1); SODIUM 139 mmol/L (136-145)
[2018-10-05 15:52] LABS: ALBUMIN 2.5 g/dL (3.4-5.0); ALKALINE PHOSPHATASE 117 U/L (46-116); LIPASE 185 U/L (73-393); NT-PRO BRAIN NAT PEPTIDE 197 pg/mL (<300); SGOT 32 U/L (15-37); SGPT 27 U/L (30-65); TOTAL BILIRUBIN 0.2 mg/dL (<0.1-1.0); TOTAL PROTEIN 6.7 g/dL (6.4-8.2); TROPONIN-I LEVEL <0.06 ng/mL (<0.06)
--- NOTE | 2018-10-05 16:55 | EKG ---
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 : 1935 Requested By: Chris Fitzpatrick Order Number: [id number] MD: Christopher Arce Measurements Intervals [place] Rate: 61 P: 12 AL: 183 QRS: -16 QRSD: 102 T: 14 QT: 452 QTc: 456 Interpretive Statements Sinus rhythm Inferior infarct, old Compared to ECG 09/13/2018 02:50:42 Myocardial infarct finding now present Electronically Signed On 10-05-2018 16:54:49 CDT by Christopher Arce [email or web address] <ELECTRONICALLY SIGNED> By: Christopher Arce MD, [facility] 10/05/18 1654 1437 143 Christopher Arce MD, [facility] /EPI
[2018-10-05 17:49] VITALS: BP 137/54
== END 2018-10-05 17:53 | disposition home or self-care (01) ==
LOC: M.ERS 14:27
PROVIDERS: Emergency Medicine
DX: I95.9 Hypotension, unspecified (principal); T46.3X5A Adverse effect of coronary vasodilators, initial encounter; K21.9 Gastro-esophageal reflux disease without esophagitis; E03.9 Hypothyroidism, unspecified; E78.5 Hyperlipidemia, unspecified; I73.9 Peripheral vascular disease, unspecified; I12.9 Hypertensive chronic kidney disease with stage 1 through stage 4 chronic kidney disease, or unspecified chronic kidney disease; E11.22 Type 2 diabetes mellitus with diabetic chronic kidney disease; N18.3 Chronic kidney disease, stage 3 (moderate); Z79.4 Long term (current) use of insulin; Z88.6 Allergy status to analgesic agent; Z88.1 Allergy status to other antibiotic agents; Z86.718 Personal history of other venous thrombosis and embolism; Z86.711 Personal history of pulmonary embolism; Z90.710 Acquired absence of both cervix and uterus; Z90.49 Acquired absence of other specified parts of digestive tract; Z96.653 Presence of artificial knee joint, bilateral; Z88.8 Allergy status to other drugs, medicaments and biological substances; Y92.89 Other specified places as the place of occurrence of the external cause

== ENCOUNTER 2018-12-24 18:24 | Emergency (ER) | payer MEDICARE, BC ==
[~2018-12-24] VITALS: Ht 152.4 cm; Wt 76.7 kg
[2018-12-24] MEDS ORDERED: BENICAR20 MG PO (18:37)
[2018-12-24] MEDS ORDERED: PROTONIX40 M1 PO (18:37)
[2018-12-24 19:30] LABS: ABSOLUTE BASOPHILS 0.1 thou/uL (0.0-0.2); ABSOLUTE EOSINOPHILS 0.1 thou/uL (0.0-0.7); ABSOLUTE LYMPHOCYTES 2.2 thou/uL (0.8-5.3); ABSOLUTE MONOCYTES 0.6 thou/uL (0.0-1.2); ABSOLUTE NEUTROPHILS 5.8 thou/uL (1.6-8.1); BASOPHILS 0.9 %; EOSINOPHILS 1.6 %; HEMOGLOBIN 11.2 gm/dL (12.0-15.0); LYMPHOCYTES 24.9 %; MCH 32.2 pg (26.0-34.0); MCV 94.6 fL (80.0-100.0); MPV 8.2 fl. (7.2-11.1); NUCLEATED RBCS 0 /100WBC; PLATELET COUNT* 304 thou/uL (150-400); POLYS 65.6 %; RBC 3.49 mil/uL (4.20-5.00); RDW-CV 13.8 % (10.5-14.5); WBC 8.8 thou/uL (4.0-11.0)
[2018-12-24 19:36] LABS: CALCIUM 9.1 mg/dL (8.5-10.1); CREATININE 1.7 mg/dL (0.6-1.3); POTASSIUM 4.3 mmol/L (3.5-5.1)
[2018-12-24 19:40] LABS: ALBUMIN 2.6 g/dL (3.4-5.0); APTT 29.3 Seconds (25.0-31.3); PROTIME 10.4 Seconds (9.20-11.50); TOTAL BILIRUBIN 0.4 mg/dL (<0.1-1.0); TOTAL PROTEIN 7.7 g/dL (6.4-8.2)
[2018-12-24] MEDS ORDERED: DOXYCYCLINE 10100 MG PO (21:48)
[2018-12-24] MEDS ORDERED: CENTANY30 GM TOP (21:51)
[2018-12-24 22:05] VITALS: BP 165/80
== END 2018-12-24 22:07 | disposition home or self-care (01) ==
LOC: M.ERS 18:24
PROVIDERS: Nurse Practitioner Family
DX: L03.116 Cellulitis of left lower limb (principal); K21.9 Gastro-esophageal reflux disease without esophagitis; E03.9 Hypothyroidism, unspecified; E78.5 Hyperlipidemia, unspecified; I12.9 Hypertensive chronic kidney disease with stage 1 through stage 4 chronic kidney disease, or unspecified chronic kidney disease; E11.22 Type 2 diabetes mellitus with diabetic chronic kidney disease; N18.3 Chronic kidney disease, stage 3 (moderate); Z79.4 Long term (current) use of insulin; Z86.718 Personal history of other venous thrombosis and embolism; Z88.1 Allergy status to other antibiotic agents; Z88.8 Allergy status to other drugs, medicaments and biological substances; Z88.5 Allergy status to narcotic agent; Z90.49 Acquired absence of other specified parts of digestive tract; Z90.710 Acquired absence of both cervix and uterus; Z96.652 Presence of left artificial knee joint; Z86.711 Personal history of pulmonary embolism

== ENCOUNTER → 2020-09-02 | Outpatient (CLI) | payer MEDICARE, BC ==
[~2020-09-02] MED LIST changes: +CENTANY30 GM TOP; +DOXYCYCLINE 10100 MG PO
== END ==
LOC: M.CT 09:06
PROVIDERS: ATTEND Nurse Practitioner
DX: R06.02 Shortness of breath (principal); Z86.711 Personal history of pulmonary embolism; R91.8 Other nonspecific abnormal finding of lung field